=== PATIENT | female | born 1945 | race Caucasian/White ===

== ENCOUNTER 2020-10-06 10:48 | Emergency (ER) | payer MEDICARE ==
[~2020-10-06] VITALS: Ht 162.6 cm; Wt 140.0 kg
[~2020-10-06 10:48] MED LIST: AMLO10TA4 PO; ASPI81TA52 PO; FURO-150 PO; LACT1CAP26 PO; LOP25T PO; LORA10TA65 PO; MULT-1085 PO; POTA10TA19 PO; TRAM50TA2 PO
[2020-10-06 10:54] VITALS: BP 132/76
[2020-10-06] MEDS ORDERED: GABA-534 PO (11:30)
[2020-10-06] MEDS ORDERED: PRED20TA PO (11:30)
[2020-10-06] MEDS ORDERED: VALA100031 PO (11:30)
[2020-10-06] MEDS ORDERED: DIPH25CA83 PO (11:30)
== END 2020-10-06 11:44 | disposition home or self-care (01) ==
LOC: ER 10:49
DX: B02.9 Zoster without complications (principal)
CPT/HCPCS: 99283

== ENCOUNTER 2022-06-09 10:34 | Emergency (ER) | payer MEDICARE, OTHER ==
[~2022-06-09] VITALS: Ht 162.6 cm; Wt 145.4 kg
[~2022-06-09 10:34] MED LIST changes: +DIPH25CA83 PO; +GABA-534 PO; +POTA-192 PO; -POTA10TA19 PO; +VALA100031 PO
--- NOTE | 2022-06-09 12:45 | NUR ---
I agree with Judson DUNHAM's general assessment.
--- NOTE | 2022-06-09 13:32 | NUR ---
[facility] AT [facility]
[2022-06-09 13:51] LABS: BASOPHILS # (AUTO) 0.1 X10'3 (0-0.2); BASOPHILS % (AUTO) 0.5 % (0-1); EOSINOPHILS # (AUTO) 0.5 X10'3 (0-0.9); EOSINOPHILS % (AUTO) 2.5 % (0-6); HEMATOCRIT 45.8 % (35.0-45.0); HEMOGLOBIN 14.8 g/dl (12.0-16.0); LYMPHOCYTES % (AUTO) 10.8 % (21-51); MEAN CORPUSCULAR HEMOGLOBIN 29.9 PG (27.0-31.0); MEAN CORPUSCULAR HGB CONC 32.4 g/dL (33.0-36.5); MEAN CORPUSCULAR VOLUME 92.4 FL (78-98); MEAN PLATELET VOLUME 7.5 FL (7.4-10.4); MONOCYTES # (AUTO) 2.2 X10'3 (0-0.9); MONOCYTES % (AUTO) 11.8 % (2-12); NEUTROPHILS # (AUTO) 13.6 X10'3 (1.8-7.7); NEUTROPHILS % (AUTO) 74.4 % (42-75); PLATELET COUNT 336 X10'3 (140-440); RED BLOOD COUNT 4.95 X10'6 (4.20-5.60); WHITE BLOOD COUNT 18.3 X10'3 (4.5-11.0)
[2022-06-09 14:03] LABS: ALANINE AMINOTRANSFERASE 20 U/L (12-78); ALBUMIN 3.3 G/DL (3.4-5.0); ALBUMIN/GLOBULIN RATIO 0.7 (1.1-1.5); ALKALINE PHOSPHATASE 93 IU/L (46-116); ANION GAP 11 (8-16); ASPARTATE AMINO TRANSFERASE 23 U/L (10-37); BILIRUBIN,TOTAL 0.4 MG/DL (0.1-1.0); BLOOD UREA NITROGEN 23 MG/DL (7-18); BUN/CREATININE RATIO 17.8 (6.6-38.0); C-REACTIVE PROTEIN 3.23 MG/DL (0.0-0.5); CALCIUM 9.7 MG/DL (8.5-10.1); CHLORIDE 99 MMOL/L (99-107); CREATININE 1.29 MG/DL (0.40-0.90); GLUCOSE 109 MG/DL (70-104); POTASSIUM 4.1 MMOL/L (3.5-5.1); SODIUM 134 MMOL/L (135-145); TOTAL CARBON DIOXIDE 23.8 MMOL/L (24-32); eGFR 40 ML/MIN
[2022-06-09] MEDS ORDERED: CefTRIAXone 2gm/D5W 50ml BAG 50 ML IV ONE (14:55)
[2022-06-09] MEDS ORDERED: CEPH250T PO (15:00)
[2022-06-09 16:49] VITALS: BP 142/97
== END 2022-06-09 17:13 | disposition home or self-care (01) ==
LOC: ER 10:35
DX: L03.116 Cellulitis of left lower limb (principal); I87.8 Other specified disorders of veins; Z88.2 Allergy status to sulfonamides; Z88.1 Allergy status to other antibiotic agents; Z91.040 Latex allergy status; Z88.5 Allergy status to narcotic agent; Z79.82 Long term (current) use of aspirin; Z79.899 Other long term (current) drug therapy
CPT/HCPCS: 36415; 80053; 84145; 85025; 85651; 86140; 93925; 96365; 99284; J0696

== ENCOUNTER 2024-11-14 12:06 | Day surgery (SDC) | payer MEDICARE, OTHER ==
[~2024-11-14] VITALS: Ht 162.6 cm; Wt 125.6 kg
[~2024-11-14 12:06] MED LIST changes: +ALLO100T PO; -AMLO10TA4 PO; +CHOL20002 PO; -DIPH25CA83 PO; -GABA-534 PO; -LACT1CAP26 PO; +METF-900 PO; +NYST15CR TOP; +PANT40TA54 PO; -POTA-192 PO; +POTA8TAB69; -TRAM50TA2 PO; -VALA100031 PO
[2024-11-14 13:12] VITALS: BP 146/71; PULSE 77; RESP 11
[2024-11-14] MEDS ORDERED: propofol inj 20 ML IV ONE (14:32)
[2024-11-14] MEDS ORDERED: fentaNYL/PF 50MCG/1 ML 2ML syringe ONE (14:32)
[2024-11-14] MEDS ORDERED: midazolam 1 mg/ML 2ml injection ONE (14:32)
[2024-11-14 15:10] VITALS: BP 102/46; PULSE 73; RESP 14; O2SAT 97
[2024-11-14 15:20] VITALS: BP 109/49; PULSE 70; RESP 12; O2SAT 97
[2024-11-14 15:30] VITALS: BP 112/48; PULSE 68; RESP 15; O2SAT 95
[2024-11-14 15:40] VITALS: BP 114/51; PULSE 68; RESP 15; O2SAT 96
== END 2024-11-14 15:50 | disposition home or self-care (01) ==
LOC: GI LAB 12:06
PROVIDERS: ATTEND Internal Medicine Gastroenterology
DX: Z12.11 Encounter for screening for malignant neoplasm of colon (principal); R12 Heartburn; K31.89 Other diseases of stomach and duodenum; D12.8 Benign neoplasm of rectum; D12.2 Benign neoplasm of ascending colon; K57.30 Diverticulosis of large intestine without perforation or abscess without bleeding; J45.909 Unspecified asthma, uncomplicated; M10.9 Gout, unspecified; Z79.899 Other long term (current) drug therapy
CPT/HCPCS: 43239; 45385; C1889; J2250; J2704; J3010; J7040; Z7512

== ENCOUNTER 2025-04-28 20:12 | Emergency (ER) | payer MEDICARE, OTHER ==
[~2025-04-28] VITALS: Ht 165.1 cm; Wt 121.4 kg
[2025-04-28 20:15] VITALS: BP 143/70; PULSE 73; RESP 20; TEMP 97.2; O2SAT 97
[2025-04-28] MEDS ORDERED: CEPH500C2 PO (21:25)
--- NOTE | 2025-04-28 21:26 | Physician Documentation ---
History of Present Illness ~ Chief Complaint: Bite-insect Stated Complaint: BUG BITE Time Seen by MD: 21:08 Primary Medical Doctor: marcia Source: patient Mode of Arrival: POV Exam Limitations: no limitations HPI Patient with history of diabetes, neuropathy, gout, diverticulosis, aortic valve replacement presents secondary to a insect bite. She states she felt a sting on her left leg about 2 hours ago. Now noting erythema and swelling. No fevers or chills. No head neck or back pain. No shortness a breath. No chest pain. Was asked, but otherwise denies review of systems. Tetanus within 5 years?: Yes Medication Reconciliation Allergies: Coded Allergies: Sulfa (Sulfonamide Antibiotics) (Verified Allergy, Unknown, HIVES, 04/28/25) chlorhexidine (Verified Allergy, Unknown, HIVES, 04/28/25) ciprofloxacin (Verified Allergy, Unknown, HIVES, NAUSEA, 04/28/25) clindamycin (Verified Allergy, Unknown, PASS OUT, 04/28/25) codeine (Verified Allergy, Unknown, MAKES ILL, 04/28/25) latex (Verified Allergy, Unknown, 04/28/25) levofloxacin (Verified Allergy, Unknown, 10/08/20) polyethylene glycol (Verified Allergy, Unknown, tachycardia, 10/08/20) polyethylene glycol 3350 (Verified Allergy, Unknown, tachycardia, 10/08/20) potassium chloride (Verified Allergy, Unknown, tachycardia, 10/08/20) sodium (Verified Allergy, Unknown, tachycardia, 10/08/20) sodium bicarbonate (Verified Allergy, Unknown, tachycardia, 10/08/20) sodium chloride (Verified Allergy, Unknown, tachycardia, 10/08/20) sodium sulfate (Verified Allergy, Unknown, tachycardia, 10/08/20) azithromycin (Verified Adverse Reaction, Unknown, dizziness, nausea, 10/08/20) cortisone (Verified Adverse Reaction, Unknown, SICK FEELING/OVERHEATING FEELING, 10/08/20) meperidine (Verified Adverse Reaction, Unknown, VIOLENT HEAVING, 10/08/20) nitrofurantoin (Verified Adverse Reaction, Unknown, NAUSEA, 10/08/20) oxycodone (Verified Adverse Reaction, Unknown, MAKES ILL, 10/08/20) prochlorperazine (Verified Adverse Reaction, Unknown, CONVULSIONS, LOSS OF MOTOR SKILLS, 10/08/20) Uncoded Allergies: MUSHROOMS (Allergy, Intermediate, HIVES, 04/28/25) TAPE (Allergy, Unknown, SORES, 10/08/20) Scheduled Allopurinol* (Allopurinol*), 1 TAB PO DAILY, (Reported) Aspirin (Aspirin EC), 1 TAB PO DAILY, (Reported) Cephalexin Monohydrate (Cephalexin), 1 CAP PO QID Cholecalciferol (Vitamin D3) (Vitamin D3), 1 CAP PO DAILY, (Reported) Furosemide (Lasix), 1 TAB PO DAILY, (Reported) Loratadine (Claritin), 1 TAB PO DAILY, (Reported) Metformin Hcl* (Metformin ER*), 1 TAB PO DAILY, (Reported) Metoprolol Tartrate* (Lopressor tablet*), 1 TAB PO Q12H, (Reported) Multivitamin (Multi Vitamin Daily), 1 EACH PO DAILY, (Reported) Pantoprazole Sodium (Pantoprazole Sodium), 1 TAB PO DAILY, (Reported) Scheduled PRN Nystatin (Nystatin), TOP BID PRN for itching, (Reported) Miscellaneous Medications Potassium Chloride (Klor-Con 8), (Reported) Past Medical History Past Medical History: Peripheral Neuropathy, *CARDIOVASCULAR* (Aortic valve replacement), Asthma, Diverticulosis, Peptic Ulcer Disease, Diabetes, *MUSCULOSKELETAL* (Bilateral knee replacement) Past Surgical History: cholecystectomy, , heart valve surgery, orthopedic surgeries Alcohol Use: None Drug Use: none Lives with: Spouse Lives In: Home Review of Systems ROS Review of systems negative except documented in HPI. Physical Exam Vital Signs: Temperature: 97.2, Heart Rate: 73, Respiratory Rate: 20, BP: 143/70, Pulse Oximetry: 97, Weight: 121.360 Oxygen Flow Rate: 0 Pulse Oximetry Reflects: adequate oxygenation Physical Exam General: Awake, alert, oriented. No apparent distress Respiratory: Lungs are clear to auscultation bilaterally. No respiratory distress. Chest: Normal shape and size. No accessory muscle use. Cardiovascular: Regular rate and rhythm. S1-S2. No murmur, gallop, rub. Gastrointestinal: Abdomen is soft. Nontender to palpation. Bowel sounds present. Extremities: Nonpitting edema. No cyanosis or clubbing. Neurologic: Alert and oriented x4. Nonfocal Psychiatric: Normal mood and affect. Skin: Normal color. Warm and dry. Left catheterization with area of erythema. Mild swelling. Warmth. Progress Results/Orders Results/Orders Vital Signs 04/28/25 20:15 Temp 97.2 Pulse 73 Resp 20 B/P (MAP) 143/70 Pulse Ox 97 O2 Flow Rate 0 Medical Decision Making Additional information obtaine: family Findings Patient presents secondary to feeling a sting to her left leg and now with erythema and swelling. Concern for cellulitis. She will be treated for the smita e with antibiotics. Signs and symptoms reviewed. She was encouraged to return for new or worsening symptoms. Differential Dx:Considerations: Include: Allergic reaction, Cellulitis, Insect envenomation, Punture wound, Urticaria Departure Time of Disposition: 21:22 Disposition: HOME / SELF CARE / HOMELESS Impression: Primary Impression: Cellulitis Qualified Codes: L03.116 - Cellulitis of left lower limb Condition: Stable Discharge Instructions: Cellulitis, Adult Additional Instructions: As we discussed I am unable to tell based on looking at her leg if you are bit by an insect. There is some redness that can be consistent with a infection of the skin called cellulitis. I have given you an antibiotic prescription. Please return for worsening symptoms or new symptoms. Otherwise, recommend f ollowing up with your primary care provider. Referrals: NO PRIMARY CARE PROVIDER (PCP) Prescriptions Cephalexin Monohydrate (Cephalexin) 500 Mg Capsule 1 CAP PO QID for 5 Days, #24 CAP Prov: ROQUE CERVANTES NP 04/28/25 Education Educated: Patient Educated regarding: diagnosis, treatment, need for follow up Signature Scribe Signature: no scribe Attestation: The note accurately reflects work and decisions made by me.Roque Cervantes - DIMPLE 04/28/25 22:11 This note was created with the assistance of voice recognition software whereby errors in grammar, syntax, and/or spelling may have occurred despite active proofreading efforts by the author. Please do not hesitate to contact the provider for clarification or for questions regarding the content of this document. ROQUE CERVANTSE NP Apr 28, 2025 21:26
== END 2025-04-28 21:32 | disposition home or self-care (01) ==
LOC: ER 20:12
DX: L03.116 Cellulitis of left lower limb (principal); J45.909 Unspecified asthma, uncomplicated; E11.42 Type 2 diabetes mellitus with diabetic polyneuropathy; Z88.2 Allergy status to sulfonamides; Z88.1 Allergy status to other antibiotic agents; Z88.5 Allergy status to narcotic agent; Z91.040 Latex allergy status; Z91.048 Other nonmedicinal substance allergy status; Z90.49 Acquired absence of other specified parts of digestive tract; Z88.8 Allergy status to other drugs, medicaments and biological substances; Z87.11 Personal history of peptic ulcer disease; Z79.84 Long term (current) use of oral hypoglycemic drugs; Z79.899 Other long term (current) drug therapy; W57.XXXA Bitten or stung by nonvenomous insect and other nonvenomous arthropods, initial encounter; Y93.89 Activity, other specified; Y92.89 Other specified places as the place of occurrence of the external cause; Y99.8 Other external cause status
CPT/HCPCS: 99283